=== PATIENT | female | born 1995 | race Caucasian/White ===

== ENCOUNTER 2023-11-18 16:54 | Emergency (ER) | payer SELFPAY ==
[~2023-11-18] VITALS: Ht 162.6 cm; Wt 63.5 kg
[2023-11-18 16:57] VITALS: BP 112/74; PULSE 98; RESP 16; TEMP 98; O2SAT 100
[2023-11-18 17:03] VITALS: BP 121/74; PULSE 108; RESP 25; TEMP 98.1; O2SAT 100
[2023-11-18] MEDS: NACL 0.9% 1,000 ML IV ONE (18:06)
[2023-11-18] MEDS: ONDANSETRON 4 MG/2 ML VIAL IVP ONE (18:07)
[2023-11-18 18:12] LABS: APPEARANCE,URINE SL CLOUDY (CLEAR); BILIRUBIN,URINE NEGATIVE (NEGATIVE); BLOOD, URINE 3+ (NEGATIVE); COLOR,URINE YELLOW (YELLOW); LEUKOCYTE ESTERASE ,URINE 1+ (NEGATIVE); NITRITE, URINE NEGATIVE (NEGATIVE); PROTEIN,URINE 2+ (NEGATIVE); UGLUCOSE NEGATIVE (NEGATIVE)
[2023-11-18 18:15] LABS: BACTERIA,URINE 1+ /HPF (None Seen); RBC,URINE 11-20 (MOD) /HPF (0-5); SQUAMOUS EPITHELIAL CELL,UR 0-3 (FEW) /LPF (0-3 (FEW))
[2023-11-18] MEDS: MORPHINE SULFATE 4 MG/ML SYR IVP ONE (18:15)
[2023-11-18 18:16] LABS: MUCUS,URINE None Seen /LPF (None Seen)
[2023-11-18 18:18] LABS: BASOPHILS # (AUTO) 0.1 K/uL (0.00-0.22); BASOPHILS % (AUTO) 0.6 % (0.0-2.0); EOSINOPHILS # (AUTO) 0.1 K/uL (0-0.4); EOSINOPHILS % (AUTO) 1.1 % (0.0-4.0); HEMATOCRIT 39.5 % (36-48); HEMOGLOBIN 13.9 g/dL (12.0-16.0); LYMPHOCYTES # (AUTO) 2.4 K/uL (2.5-16.5); LYMPHOCYTES % (AUTO) 23.2 % (20.5-51.1); MEAN CORPUSCULAR HEMOGLOBIN 32 pg (27-31); MEAN CORPUSCULAR HGB CONC 35 g/dL (33-37); MEAN CORPUSCULAR VOLUME 91.6 fL (80-94); MONOCYTES # (AUTO) 0.7 K/uL (0.8-1.0); NEUTROPHILS # (AUTO) 7.1 K/uL (1.8-7.7); NEUTROPHILS % (AUTO) 68.1 % (42.2-75.2); PLATELET COUNT (AUTO) 257 K/uL (140-450); RED BLOOD CELL COUNT(AUTO) 4.31 MIL/uL (4.20-5.40); RED CELL DISTRIBUTION WIDTH 13.4 % (11.6-13.7); WHITE BLOOD COUNT (AUTO) 10.5 K/uL (4.8-10.8)
[2023-11-18 18:31] LABS: ANION GAP 15.3 (8-16); CALCIUM 9.3 mg/dL (8.5-10.1); CARBON DIOXIDE 23.3 mmol/L (21-32); CREATININE 0.8 mg/dL (0.6-1.3); POTASSIUM 3.6 mmol/L (3.5-5.1)
[2023-11-18 18:38] LABS: ALBUMIN 3.8 g/dL (3.4-5.0); BILIRUBIN,DIRECT 0.1 mg/dL (0.0-0.3); TOTAL BILIRUBIN 0.9 mg/dL (0.0-1.0)
[2023-11-18 21:03] VITALS: BP 121/74; PULSE 108; RESP 25; TEMP 98.1; O2SAT 100
[2023-11-20] MEDS ORDERED: CEPH-588 PO (15:16)
== END 2023-11-18 21:00 | disposition home or self-care (01) ==
LOC: MED 16:54
DX: O03.9 Complete or unspecified spontaneous abortion without complication (principal); Z79.899 Other long term (current) drug therapy
CPT/HCPCS: 36415; 76817; 80048; 80076; 81001; 83690; 84702; 85025; 86886; 86900; 86901; 87086; 96361; 96374; 96375; 99285; J2270; J2405; J7030; Q0092